=== PATIENT | female | born 1975 | race Caucasian/White ===

== ENCOUNTER 2017-09-28 15:38 | Observation (INO) | payer OTHER ==
[~2017-09-28] VITALS: Ht 172.7 cm; Wt 84.0 kg
[~2017-09-28 15:38] MED LIST: FLUO20CA19 PO
[2017-09-28 16:18] LABS: ALBUMIN 4.2 g/dL (3.4-5.0); ANION GAP 10 mmol/L (5-15); CALCIUM 8.7 mg/dL (8.5-10.1); CHLORIDE 109 mmol/L (98-107); CREATININE 0.75 mg/dL (0.55-1.02); SALICYLATE LEVEL 4.1 mg/dL (2.8-20.0)
[2017-09-28 16:21] LABS: ACETAMINOPHEN < 2 mcg/mL (10-30)
[2017-09-28 16:25] LABS: BASOPHILS # (AUTO) 0.07 x10^3/uL (0-0.1); BASOPHILS % (AUTO) 1 % (0-1); EOSINOPHILS # (AUTO) 0.41 x10^3/uL (0-0.4); EOSINOPHILS % (AUTO) 5 % (1-7); LYMPHOCYTES # (AUTO) 2.37 x10^3/uL (1-3.4); LYMPHOCYTES % (AUTO) 27 % (22-44); MD NO; MEAN CORPUSCULAR HEMOGLOBIN 31.6 pg (27.0-34.8); MEAN CORPUSCULAR HGB CONC 33.7 g/dL (32.4-35.8); MEAN CORPUSCULAR VOLUME 93.6 fL (80-100); MEAN PLATELET VOLUME 8.5 fL (7.4-10.4); MONOCYTES # (AUTO) 0.64 x10^3/uL (0.2-0.8); MONOCYTES % (AUTO) 7 % (2-9); NEUTROPHILS # (AUTO) 5.36 x10^3/uL (1.8-6.8); NEUTROPHILS % (AUTO) 61 % (42-75); PLATELET COUNT 240 x10^3/uL (130-400); RED BLOOD COUNT 4.17 x10^6/uL (3.82-5.3); RED CELL DISTRIBUTION WIDTH 12.9 % (9.6-15.2)
[2017-09-28 16:26] LABS: AMPHETAMINE SCREEN, URINE Negative (Negative); BARBITURATE SCREEN, URINE Negative (Negative); BENZODIAZEPINE SCREEN, URINE Negative (Negative); CANNABINOID SCREEN, URINE Positive (Negative); COCAINE SCREEN, URINE Negative (Negative); METHADONE SCREEN, URINE Negative (Negative); OPIATE SCREEN, URINE Negative (Negative)
[2017-09-28] MEDS ORDERED: ONDANSETRON ODT 4 MG PO PRN (17:30)
[2017-09-28] MEDS: ENOXAPARIN 40 MG/0.4 ML SQ SCH (17:30)
[2017-09-28 17:55] LABS: FREE T4 (FREE THYROXINE) 0.94 ng/dL (0.76-1.46); THYROID STIMULATING HORMONE 2.22 mIU/L (0.358-3.740)
[2017-09-28 22:34] VITALS: BP 118/77
[2017-09-29 06:03] LABS: BASOPHILS # (AUTO) 0.09 x10^3/uL (0-0.1); BASOPHILS % (AUTO) 1 % (0-1); EOSINOPHILS # (AUTO) 0.64 x10^3/uL (0-0.4); EOSINOPHILS % (AUTO) 9 % (1-7); LYMPHOCYTES # (AUTO) 2.44 x10^3/uL (1-3.4); LYMPHOCYTES % (AUTO) 34 % (22-44); MD NO; MEAN CORPUSCULAR HEMOGLOBIN 31.5 pg (27.0-34.8); MEAN CORPUSCULAR HGB CONC 33.5 g/dL (32.4-35.8); MEAN CORPUSCULAR VOLUME 93.9 fL (80-100); MEAN PLATELET VOLUME 8.3 fL (7.4-10.4); MONOCYTES # (AUTO) 0.57 x10^3/uL (0.2-0.8); MONOCYTES % (AUTO) 8 % (2-9); NEUTROPHILS % (AUTO) 48 % (42-75); PLATELET COUNT 230 x10^3/uL (130-400); RED BLOOD COUNT 4.32 x10^6/uL (3.82-5.3); RED CELL DISTRIBUTION WIDTH 13.2 % (9.6-15.2)
[2017-09-29 06:08] LABS: ALBUMIN 3.9 g/dL (3.4-5.0); ANION GAP 4 mmol/L (5-15); CHLORIDE 111 mmol/L (98-107)
[2017-09-29 06:19] LABS: ALANINE AMINOTRANSFERASE 23 U/L (12-78); ALKALINE PHOSPHATASE 45 U/L (45-117); BILIRUBIN,TOTAL 0.4 mg/dL (0.2-1.0); CALCIUM 8.8 mg/dL (8.5-10.1); CREATININE 0.78 mg/dL (0.55-1.02); TOTAL PROTEIN 7.2 g/dL (6.4-8.2)
[2017-09-29 08:07] VITALS: BP 116/74
[2017-09-29] MEDS: FLUOXETINE HCL 20 MG CAPSULE PO SCH (08:58)
[2017-09-29] MEDS: SENNA/DOCUSATE TABLET PO SCH (08:58)
[2017-09-29] MEDS: ENOXAPARIN 40 MG/0.4 ML SQ SCH (17:30)
[2017-09-29 19:39] VITALS: BP 114/76
[2017-09-29] MEDS: LORazepam 0.5MG TABLET PO PRN (19:54)
[2017-09-30 07:46] VITALS: BP_SYST 117; BP_SYST 134; BP_DIAS 73; BP_DIAS 77
[2017-09-30] MEDS: SENNA/DOCUSATE TABLET PO SCH (09:00)
[2017-09-30] MEDS: FLUOXETINE HCL 20 MG CAPSULE PO SCH (09:31)
[2017-09-30] MEDS ORDERED: MAALOX/HYOSCYAMINE/LIDOCAINE 45 ML BTL PO ONE (12:30)
[2017-09-30] MEDS ORDERED: CALCIUM CARBONATE 500 MG TAB.CHEW PO PRN (12:30)
[2017-09-30] MEDS: ENOXAPARIN 40 MG/0.4 ML SQ SCH (17:30)
[2017-09-30] MEDS: LORazepam 0.5MG TABLET PO PRN (18:05)
[2017-09-30 19:35] VITALS: BP 119/79
[2017-10-01] MEDS ORDERED: OMEPRAZOLE 20 MG CAPSULE.DR PO SCH (07:30)
[2017-10-01] MEDS: OMEPRAZOLE 20 MG CAPSULE.DR PO SCH ×2 (07:39→11:30)
[2017-10-01 07:45] VITALS: BP 108/77
[2017-10-01] MEDS: SENNA/DOCUSATE TABLET PO SCH (08:19)
[2017-10-01] MEDS: FLUOXETINE HCL 20 MG CAPSULE PO SCH (08:19)
[2017-10-01] MEDS ORDERED: ACETAMINOPHEN 325 MG TABLET ONE (08:33)
[2017-10-01] MEDS ORDERED: ACETAMINOPHEN 325 MG TABLET PO PRN (09:00)
[2017-10-01] MEDS: LORazepam 0.5MG TABLET PO PRN (11:21)
[2017-10-01] MEDS ORDERED: ZIPRASIDONE 20 MG INJ IM ONE (15:30)
== END 2017-10-01 14:11 ==
LOC: ED 17:12 → EDIP 17:13 → ED 17:20 → 2N 22:31
PROVIDERS: ADMIT Internal Medicine; ATTEND Internal Medicine
DX: R45.851 Suicidal ideations (principal); F41.9 Anxiety disorder, unspecified; F33.2 Major depressive disorder, recurrent severe without psychotic features; K21.9 Gastro-esophageal reflux disease without esophagitis; F12.10 Cannabis abuse, uncomplicated; Z91.5 Personal history of self-harm; Z87.891 Personal history of nicotine dependence
CPT/HCPCS: 36415; 80048; 80053; 80307; 80329; 82040; 84439; 84443; 84702; 85025; 99285; G0378; G0480